=== PATIENT | male | born 1955 | race Caucasian/White ===

== ENCOUNTER 2022-12-30 12:57 | Emergency (ER) | payer OTHER ==
[2022-12-30] MEDS ORDERED: LIDOCAINE 1% MPF 30 ML VIAL ONE (13:30)
[2022-12-30] MEDS ORDERED: TETANUS & DIPHTHERIA TOX,ADULT 0.5 ML VIAL ONE (13:30)
--- OUTSIDE RECORDS SUMMARY | 2022-12-30 13:31 | XMS REPORT | Continuity of Care Document ---
:1955 Author Organization [facility] t Address [address] [place] [address] Care Team Providers Name Role Phone Ayla Rosales MD Primary Care Physician ASHLEY SIERRA Attending Clinician Unavailable LAB68 Attending Clinician Unavailable YAYA EISENBERG Attending Clinician Unavailable DEACON MAY Attending Clinician Unavailable JOANS ULLOA Attending Clinician Unavailable MD GEORGIA Attending Clinician Unavailable Deacon May MD Attending Clinician Yaya Eisenberg MD Attending Clinician Ashley Sierra RD Attending Clinician CED MARTIN I Attending Clinician Unavailable Yumiko Huggins OD Attending Clinician [phone] [id number] Attending Clinician Unavailable NIKKI AVITIA Attending Clinician Unavailable Payers Payer Name Policy Type Policy Number Effective Date Expiration Date S aleksey [employer]KE HMO 7 [id number] 2021 00:00:00 Problems Condition Condition Condition Status Onset Resolution Last Treating Co mments Source Name Details Category Date Date Treatment Clinician Date Hyperlipid Hyperlipid Disease Active K elseprasad emia emia 1-20 Seybold 00:00: - 00 Externa l Type 2 Type 2 Disease Active [place] diabetes diabetes 1-20 Seybol d mellitus mellitus 00:00: without without 00 complicati complicati on, on, without without long-term long-term current current use of use of insulin insulin Type 2 Type 2 Disease Active [place] diabetes diabetes -20 Seybol juju mellitus mellitus 00:00: - with with 00 Externa hyperlipid hyperlipid l emia emia Obesity Obesity Disease Active [place] (BMI (BMI 09-17 Seybold 35.0-39.9 35.0-39.9 00:00: without without 00 comorbidit comorbidit y) y) Former Former Disease Active [place] smoker smoker 09-17 Seybold 00:00: - 00 Externa l Severe Severe Disease Active [place] obesity obesity 09-17 Seybold (BMI (BMI 00:00: 35.0-39.9) 35.0-39.9) 00 with with comorbidit comorbidit y y Allergies, Adverse Reactions, Alerts This patient has no known allergies or adverse reactions. Social History Social Habit Start Date Stop Date Quantity Comments Source History SDOH [place] singh Alcohol Frequency - Exter nal History SDOH [facility] sing[facility] Alcohol Std Drinks - Exte rnal History MALCOLMPR [place] sing[facility] Alcohol Binge - External Exposure to Not sure [facility] matute SARS-CoV-2 (event) Tobacco use and 2022-03-04 2022-03-04 Smokeless tobacco Nikolay Guzman exposure 00:00:00 00:00:00 non-user - External Tobacco Comment 2022-03-04 2022-03-04 quit in 2012 [facility] Guzman 00:00:00 00:00:00 - External Alcohol intake 2018-03-11 2018-03-11 [facility]er [facility] Cigarettes smoked 2014-03-22 2014-03-[address] [facility] current (pack per 00:00:00 00:00:00 [facility] Center day) - Reported Cigarette 2014-03-22 2014-03-[address] [facility] pack-years 00:00:00 00:00:00 [facility] Alcohol Comment 2013-11-30 2013-11-[address] [facility] 00:[facility] History of tobacco 2013-07-23 Current smoker [facility] use 00:00:00 [facility] Sex [birth year] At [birth year] ROBERT Brand 00:00:00 00:00:00 [facility] Smoking Status Start Date Stop Date Source Ex-smoker 2022-03-04 00:00:00 2022-03-04 00:00:00 [place] S eybold - External Medications Ordered Filled Start Stop Current Ordering Indication Dosage Frequency Signature Comments Components Source Medication Medication Date Date Medication? Clinician (SIG) Name Name Multiple 2021-08 Yes 1{tbl} Take 1 Kelse y Vitamins-Mi 0-31 tablet by Shannon trevino nerals 11:23: mouth - (CENTRUM 35 daily Externa SILVER l ULTRA MENS OR) FIBER ADULT 2021-08 Yes 2{tbl} Take 2 Ke lsey GUMMIES OR 0-31 tablets by Shannon trevino 11:23: mouth - 35 daily Externa l Sildenafil 2021-08 Yes 100mg QD Take 1 Thao ey Citrate 0-31 tablet Yasirold (Viagra) 00:00: (100 mg - 100 MG oral total) by Ext karin Tablet mouth l daily as needed for erectile dysfunctio n Atorvastati Yes [id number] TAKE ONE [place] n Calcium 9-30 TABLET BY Satinder ld 40 MG oral 00:00: MOUTH - Tablet 00 EVERY DAY Externa l Multiple Yes 1{tbl} Take 1 Kelse y Vitamins-Mi 6-06 tablet by Shannon trevino nerals 08:46: mouth (CENTRUM 35 daily SILVER ULTRA MENS OR) FIBER ADULT Yes 2{tbl} Take 2 Ke lsey GUMMIES OR 6-06 tablets by Shannon trevino 08:46: mouth 35 daily Na Yes [id number] Instructio Ke lsey Sulfate-K 6-06 n given to Seyb old Sulfate-Mg 00:00: patient in Sulf 00 clinic. (Suprep Use as Bowel Prep directed Kit) by 17.5-3.13-1 provider .6 GM/177ML during oral office Solution visit. Multiple Yes 1{tbl} Take 1 Kelse y Vitamins-Mi 4-26 tablet by Shannon trevino nerals 09:50: mouth (CENTRUM 03 daily SILVER ULTRA MENS OR) FIBER ADULT Yes 2{tbl} Take 2 Ke lsey GUMMIES OR 4-26 tablets by Shannon trevino 09:50: mouth 03 daily Triamcinolo Yes Apply bid [place] ne 4- to Seybold Acetonide 00:00: affected 0.1 % apply 00 area ; no externally longer x Cream 14 days. Triamcinolo Yes Apply bid [place] ne - to Seybold Acetonide 00:00: affected 0.1 % apply 00 area ; no externally longer x Cream 14 days. Triamcinolo 202- No Apply bid [place] ne 4-06-29 to Seybold Acetonide 00:00: 00:00 affected - 0.1 % apply 00 :00 area ; no Ext karin externally longer x l Cream 14 days. Multiple Yes 1{tbl} Take 1 Kelse y Vitamins-Mi 1-31 tablet by Shannon trevino nerals 10:48: mouth (CENTRUM 28 daily SILVER ULTRA MENS OR) FIBER ADULT Yes 2{tbl} Take 2 Ke lsey GUMMIES OR 1-31 tablets by Shannon trevino 10:48: mouth 28 daily Multiple Yes 1{tbl} Take 1 Kelse y Vitamins-Mi 1-31 tablet by Shannon [employer] nerals 10:48: mouth (CENTRUM 28 daily SILVER ULTRA MENS OR) FIBER ADULT Yes 2{tbl} Take 2 Ke lsey GUMMIES OR 1-31 tablets by Shannon trevino 10:48: mouth 28 daily Multiple Yes 1{tbl} Take 1 Kelse y Vitamins-Mi 1-31 tablet by Shannon [employer] nerals 09:48: mouth (CENTRUM 12 daily SILVER ULTRA MENS OR) FIBER ADULT Yes 2{tbl} Take 2 Ke lsey GUMMIES OR 1-31 tablets by Shannon trevino 09:48: mouth 12 daily Atorvastati Yes [id number] 40mg Take 1 [place] n Calcium 1-31 tablet (40 Seyb old 40 MG oral 00:00: mg total) Tablet 00 by mouth daily Zoster Vac Yes [id number] One dose [place] Recomb 1-31 now. Seybold Adjuvanted 00:00: Second 50 00 dose given MCG/0.5ML two to six intramuscul months ar Recon AFTER Susp first dose. Blood 2021-0 Yes Sig as [place] Glucose 1-31 directed. Seybold Monitoring 00:00: Suppl 00 (Blood Glucose Monitor System) w/Device does not apply Kit Glucose 0 Yes Sig once [facility] Blood in - daily. Seybold vitro Strip 00:00: 00 Lancets 28G Yes Use as Thao ey does not 1- directed Seybold apply Misc 00:00: 00 Sildenafil 2021- Yes [id number] 50mg Q24H Take 1 [place] Citrate 1-31 tablet (50 Seybol d (Viagra) 50 00:00: mg total) MG oral 00 by mouth Tablet daily as needed for erectile dysfunctio n Atorvastati Yes [id number] 40mg Take 1 [place] n Calcium 1-31 tablet (40 Seyb old 40 MG oral 00:00: mg total) Tablet 00 by mouth daily Zoster Vac Yes [id number] One dose [place] Recomb 1-31 now. Seybold Adjuvanted 00:00: Second 50 00 dose given MCG/0.5ML two to six intramuscul months ar Recon AFTER Susp first dose. Blood 2021- Yes Sig as [place] Glucose 1- directed. Seybold Monitoring 00:00: Suppl 00 (Blood Glucose Monitor System) w/Device does not apply Kit Glucose Yes Sig once [place] Blood in - daily. Seybold vitro Strip 00:00: 00 Lancets 28G 0 Yes Use as Thao ey does not 09-29 directed Seybold apply Misc 00:00: 00 Sildenafil 2021-0 Yes [id number] 50mg Q24H Take 1 [place] Citrate 1-31 tablet (50 Seybol d (Viagra) 50 00:00: mg total) MG oral 00 by mouth Tablet daily as needed for erectile dysfunctio n Atorvastati Yes [id number] 40mg Take 1 [place] n Calcium 1-31 tablet (40 Seyb old 40 MG oral 00:00: mg total) Tablet 00 by mouth daily Zoster Vac Yes [id number] One dose [place] Recomb 1-31 now. Seybold Adjuvanted 00:00: Second 50 00 dose given MCG/0.5ML two to six intramuscul months ar Recon AFTER Susp first dose. Blood 2021-0 Yes Sig as [place] Glucose 1-31 directed. Seybold Monitoring 00:00: Suppl 00 (Blood Glucose Monitor System) w/Device does not apply Kit Glucose Yes Sig once [place] Blood in - daily. Seybold vitro Strip 00:00: 00 Lancets 28G Yes Use as Thao ey does not - directed Seybold apply Misc 00:00: 00 Sildenafil Yes [id number] 50mg QD Take 1 [place] Citrate 1-31 tablet (50 Seybol d (Viagra) 50 00:00: mg total) MG oral 00 by mouth Tablet daily as needed for erectile dysfunctio n Atorvastati Yes [id number] 40mg Take 1 [place] n Calcium 1-31 tablet (40 Seyb old 40 MG oral 00:00: mg total) Tablet 00 by mouth daily Zoster Vac 0 Yes [id number] One dose [place] Recomb 1-31 now. Seybold Adjuvanted 00:00: Second 50 00 dose given MCG/0.5ML two to six intramuscul months ar Recon AFTER Susp first dose. Blood Yes Sig as [place] Glucose 1- directed. Seybold Monitoring 00:00: Suppl 00 (Blood Glucose Monitor System) w/Device does not apply Kit Glucose Yes Sig once [facility] Blood in - daily. Seybold vitro Strip 00:00: 00 Lancets 28G Yes Use as Thao ey does not 09-29 directed Seybold apply Misc 00:00: 00 Sildenafil 0 Yes [id number] 50mg QD Take 1 [place] Citrate 1-31 tablet (50 Seybol d (Viagra) 50 00:00: mg total) MG oral 00 by mouth Tablet daily as needed for erectile dysfunctio n Atorvastati Yes [id number] 40mg Take 1 [place] n Calcium 1-31 tablet (40 Seyb old 40 MG oral 00:00: mg total) Tablet 00 by mouth daily Zoster Vac 2021-0 Yes [id number] One dose [place] Recomb 1- now. Seybold Adjuvanted 00:00: Second 50 00 dose given MCG/0.5ML two to six intramuscul months ar Recon AFTER Susp first dose. Blood 2021-0 Yes Sig as [place] Glucose - directed. Seybold Monitoring 00:00: Suppl 00 (Blood Glucose Monitor System) w/Device does not apply Kit Glucose 2021-0 Yes Sig once [facility] Blood in 09-29 daily. Seybold vitro Strip 00:00: 00 Lancets 28G 0 Yes Use as Thao ey does not - directed Seybold apply Misc 00:00: 00 Sildenafil 2021-0 Yes [id number] 50mg QD Take 1 [place] Citrate 1-31 tablet (50 Seybol d (Viagra) 50 00:00: mg total) MG oral 00 by mouth Tablet daily as needed for erectile dysfunctio n Zoster Vac 2021-0 Yes [id number] One dose [place] Recomb 09-29 now. Seybold Adjuvanted 00:00: Second - 50 00 dose given Externa MCG/0.5ML two to six l intramuscul months ar Recon AFTER Susp first dose. Blood 2021-0 Yes Sig as [place] Glucose - directed. Seybold Monitoring 00:00: - Suppl 00 Externa (Blood l Glucose Monitor System) w/Device does not apply Kit Glucose 2021-0 Yes Sig once [facility] Blood in - daily. Seybold vitro Strip 00:00: - 00 Externa l Lancets 28G 2021-0 Yes Use as Thao ey does not - directed Seybold apply Misc 00:00: - 00 Externa l Sildenafil 2021-0 2022- No [id number] 50mg QD Take 1 [place] Citrate 1-31 10-31 tablet (50 Seybo ld (Viagra) 50 00:00: 00:00 mg total) - MG oral 00 :00 by mouth Externa Tablet daily as l needed for erectile dysfunctio n FIBER ADULT 2021-0 Yes 2{tbl} Take 2 Ke lsey GUMMIES OR 1-12 tablets by Shannon trevino 09:21: mouth 11 daily FIBER ADULT 2022-0 Yes 2{tbl} Take 2 Ke lsey GUMMIES OR 1-12 tablets by Sey bold 09:21: mouth 11 daily Multiple Yes 1{tbl} Take 1 Kelse y Vitamins-Mi 1-12 tablet by Seprasad bold nerals 09:21: mouth (CENTRUM 10 daily SILVER ULTRA MENS OR) Multiple Yes 1{tbl} Take 1 Kelse y Vitamins-Mi 1-12 tablet by Seprasad bold nerals 09:21: mouth (CENTRUM 10 daily SILVER ULTRA MENS OR) Immunizations Ordered Immunization Filled Immunization Date Status Commen ts Source Name Name Shingles IM 2021-11-27 Completed [place] Seybol d (Shingrix) 00:00:00 Shingles IM 2021-11-27 Completed [place] Seybol d (Shingrix) 00:00:00 Shingles IM 2021-11-27 Completed [place] Seybol d (Shingrix) 00:00:00 - External Shingles IM 2021-09-29 Completed [place] Seybol d (Shingrix) 00:00:00 Shingles IM 2021-09-29 Completed [place] Seybol d (Shingrix) 00:00:00 Shingles IM 2021-09-29 Completed [place] Seybol d (Shingrix) 00:00:00 - External Shingles IM 2021-09-29 Completed [place] Seybol d (Shingrix) 00:00:00 Vital Signs Vital Name Observation Time Observation Value Comments Source Systolic blood 2022-06-29 16:20:00 142 mm[Hg] [facility] Clearyybold - pressure External Diastolic blood 2022-06-29 16:20:00 78 mm[Hg] Chase parham Seybold - pressure External Heart rate 2022-06-29 16:20:00 74 /min [facility] howell - External Body temperature 2022-06-29 16:20:00 36.83 Magdalene Thao joel Seybold - External Respiratory rate 2022-06-29 16:20:00 16 /min Thao joel Seybold - External Body height 2022-06-29 16:20:00 182.9 cm [facility] howell - External Body weight 2022-06-29 16:20:00 117.935 kg [place] S eybold - External BMI 2022-06-29 16:20:00 35.26 kg/m2 [place] S eybold - External Systolic blood 2022-02-02 13:46:00 122 mm[Hg] [place] Seybold pressure Diastolic blood 2022-02-02 13:46:00 70 mm[Hg] Kelse y Seybold pressure Heart rate 2022-02-02 13:46:00 74 /min [place] S eybold Body temperature 2022-02-02 13:46:00 36.89 Magdalene Thao ey Seybold Respiratory rate 2022-02-02 13:46:00 13 /min Thao ey Seybold Body height 2022-02-02 13:46:00 182.9 cm [facility] S eybold Body weight 2022-02-02 13:46:00 117.845 kg [facility] S eybold BMI 2022-02-02 13:46:00 35.24 kg/m2 [place] S eybold Systolic blood 2021-12-23 14:47:00 126 mm[Hg] [place] Seybold pressure Diastolic blood 2021-12-23 14:47:00 80 mm[Hg] Kelse y Seybold pressure Heart rate 2021-12-23 14:47:00 69 /min [place] S eybold Body temperature 2021-12-23 14:47:00 36.78 Magdalene Thao ey Seybold Respiratory rate 2021-12-23 14:47:00 16 /min Thao ey Seybold Body height 2021-12-23 14:47:00 182.9 cm [facility] S eybold Body weight 2021-12-23 14:47:00 116.665 kg [facility] S eybold BMI 2021-12-23 14:47:00 34.88 kg/m2 [place] S eybold Body weight 2021-11-27 15:15:00 118.071 kg [place] S eybold BMI 2021-11-27 15:15:00 35.30 kg/m2 [place] S eybold Systolic blood 2021-09-29 15:46:00 136 mm[Hg] [place] Seybold pressure Diastolic blood 2021-09-29 15:46:00 82 mm[Hg] Kelse y Seybold pressure Heart rate 2021-09-29 15:46:00 73 /min [facility] Cordoba eybold Body temperature 2021-09-29 15:46:00 36.89 Magdalene Thao ey Seybold Respiratory rate 2021-09-29 15:46:00 16 /min Thao ey Seybold Body height 2021-09-29 15:46:00 182.9 cm [place] S eybold Body weight 2021-09-29 15:46:00 121.11 kg [place] S eybold BMI 2021-09-29 15:46:00 36.21 kg/m2 [place] S eybold Systolic blood 2021-09-17 15:17:00 126 mm[Hg] [place] Seybold pressure Diastolic blood 2021-09-17 15:17:00 82 mm[Hg] Kelse y Seybold pressure Heart rate 2021-09-17 15:17:00 80 /min [place] Cordoba eybold Body temperature 2021-09-17 15:17:00 37.06 Magdalene Thao ey Seybold Respiratory rate 2021-09-17 15:17:00 16 /min Thao ey Seybold Body height 2021-09-17 15:17:00 182.9 cm [place] Cordoba eybold Body weight 2021-09-17 15:17:00 119.75 kg [facility] Cordoba eybold BMI 2021-09-17 15:17:00 35.80 kg/m2 [facility] Cordoba eybold Procedures This patient has no known procedures. Encounters Start End Encounter Admission Attending Care Care Encounter Source Date/Time Date/Time Type Type Clinicians Facility Department ID 2022-07-30 2022-07-30 Outpatient LAKESHIA SIERRA [id number] [place] 00:00:00 00:00:00 ASHLEY Seybol d 2022-07-09 2022-07-09 Outpatient LAKESHIA BLUM [id number] [place] 08:45:00 08:45:00 Seybol d 2022-06-29 2022-06-29 Outpatient LAB68 LAKESHIA BLUM [id number] [place] 12:15:00 12:15:00 Seybol d 2022-06-29 2022-06-29 Outpatient YAYA EISENBERG [id number] [place] 11:30:00 11:30:00 Seybol d 2022-06-24 2022-06-24 Outpatient LAB68 LAKESHIA BLUM [id number] [place] 10:00:00 10:00:00 Seybol d 2022-06-24 2022-06-24 Outpatient YAYA EISENBERG [facility] BLUM [id number] [place] 00:00:00 00:00:00 Seybol d 2022-06-23 2022-06-23 Outpatient YAYA EISENBERG [facility] BLUM [id number] [place] 10:00:00 10:00:00 Seybol d 2022-03-04 2022-03-04 Outpatient LAKESHIA MAY [id number] [place] 09:00:00 09:00:00 DEACON Seybol d 2022-03-04 2022-03-04 Outpatient ARTEMIO JONASMeng BLUM [id number] [place] 00:00:00 00:00:00 Seybol d 2022-02-20 2022-02-20 Outpatient LAB68 LAKESHIA BLUM [id number] [place] 08:25:00 08:25:00 Seybol d 2022-02-19 2022-02-19 Outpatient YAYA EISENBERG [facility] BLUM [id number] [place] 00:00:00 00:00:00 Seybol d 2022-02-04 2022-02-04 Outpatient KAMRYNLAKESHIAARISTIDESMireille BLUM [id number] [place] 00:00:00 00:00:00 MD KRYSTAL Seybol d 2022-02-02 2022-02-02 Outpatient LAB68 LAKESHIA BLUM [id number] [place] 10:00:00 10:00:00 Seybol d 2022-02-02 2022-02-02 Outpatient LAB68 LAKESHIA BLUM [id number] [place] 09:55:00 09:55:00 Seybol d 2022-02-02 2022-02-02 Office [facility] May [id number] [place] 09:00:00 09:20:00 Visit [place] SVETLANA [id number] shelley Hernandes [id number] 2022-01-27 2022-01-27 Outpatient YAYA EIESNBERG [facility] [id number] [place] 00:00:00 00:00:00 Seybol d 2022-01-12 2022-01-12 Outpatient YAYA EISENBERG [facility] [id number] [place] 00:00:00 00:00:00 Seybol d 2021-12-23 2021-12-23 Outpatient LAB68 LAKESHIA LAKESHIA [id number] [place] 10:30:00 10:30:00 Seybol d 2021-12-23 2021-12-23 Office Yaya Eisenberg [id number] [place] 10:00:00 10:15:00 Visit CLINIC [id number] Se ybold [id number] 2021-11-27 2021-11-27 Education [facility] Sierra [id number] [place] 09:45:00 10:15:00 Ashley CLINIC [id number] Se ybold [id number] 2021-11-27 2021-11-27 Outpatient ANNEMengLAKESHIA [id number] [place] 00:00:00 00:00:00 CED Seyb old 2021-10-06 2021-10-06 Outpatient YAYA EISENBERG [facility] BLUM [id number] [place] 00:00:00 00:00:00 Seybol d 2021-10-01 2021-10-01 Outpatient YAYA EISENBERG L[facility] BLUM [id number] [place] 00:00:00 00:00:00 Seybol d 2021-09-29 2021-09-29 Office [facility] Huggins [id number] [place] 10:40:00 11:00:00 Visit [facility] [id number] S marycruzbosamantha Faanevin [id number] 2021-09-29 2021-09-29 Office Yaya Eisenberg [id number] [place] 10:00:00 10:15:00 Visit L CLINIC [id number] Se ybold [id number] 2021-09-29 2021-09-29 Outpatient YAYA EISENBERG [facility] [id number] [place] 00:00:00 00:00:00 Seybol d 2021-09-25 2021-09-25 Education [facility] SIERRA [id number] [place] 09:45:00 09:45:00 ASHLEY CLINIC [id number] Se ybold [id number] 2021-09-17 2021-09-17 Outpatient TRED68 LAKESHIA BLUM [id number] [place] 11:30:00 11:30:00 Seybol d 2021-09-17 2021-09-17 Outpatient LAB68 LAKESHIA BLUM [id number] [place] 10:30:00 10:30:00 Seybol d 2021-09-17 2021-09-17 Office Yaya Eisenberg [id number] [place] 09:30:00 10:15:00 Visit L CLINIC [id number] Se ybold [id number] 2021-09-09 2021-09-09 Outpatient SADI LAKESHIA BLUM [id number] [place] 00:00:00 00:00:00 BENSY Seybol d Results Test Description Test Time Test Comments Results Result Sourc e Comments FL, ERCP 2018-03-10 Reason for FINAL REPORT PATIENT 13:58:00 exam:->calculus ID: [id number] ERCP 6 of bile views 03/10/2018 1:57 duct,abnormal PM CLINICAL HISTORY: imaging Instrument localization COMPARISON: None available IMPRESSION: Please correlate imaging report findings with the procedure note prepared by Dr. Page, as an intra-procedure imaging consultation was not requested. Reported fluoroscopy time: 8.9 minutes. Signed: Kavon Lockett Verified Date/Time: 03/10/2018 13:58:01 Reading Location: [facility] Radiology Reading Room
[2022-12-30] MEDS ORDERED: LIDOCAINE 1% 20 ML MDV ONE (13:34)
--- NOTE | 2022-12-30 14:12 | RAD REPORT ---
EXAM DESCRIPTION: RAD -Hand Left 3 View - 12/30/2022 1:54 pm CLINICAL HISTORY: Left hand pain status post injury FINDINGS: No fracture or dislocation is seen. A bandage overlies the posteromedial wrist. This obscures soft tissue detail somewhat. No gross forei gn body is seen. However, there is a 1.4 millimeter calcification or foreign body within the soft tissues of the thena r eminence
--- NOTE | 2022-12-30 14:55 | ER ---
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 Coronavirus screen: At this time, the client does not indicate any symptoms associated with coronavirus-19. Ebola Screen: No symptoms or risks identified at this time. Complicating Factors: laceration. Initial Sepsis Screen: Does the patient meet any 2 criteria? No. Patient's initial sepsis screen is negative. Does the patient have a suspected source of infection? No. Patient's initial sepsis screen is negative. Risk Assessment: Do you want to hurt yourself or someone else? Patient reports no desire to harm self or others. Onset of symptoms. Care prior to arrival:. Mechanism of Injury: Laceration sustained at home, while doing carpentry, from internal grinder set up operator Injury was accidental. 13:45 Method Of Arrival: Ambulatory ko1 13:45 Acuity: MARVA 3 ko1 Triage Assessment: 14:41 General: Appears in no apparent distress. uncomfortable, Behavior is calm, cooperative, ko1 appropriate for age. Pain: Complains of pain in left hand and dorsum of left hand. Injury Description: Laceration sustained to left hand and dorsum of left hand. Historical: - Allergies: 14:41 No Known Allergies; ko1 - Immunization history:: Adult Immunizations unknown, . - Social history:: Smoking status: . Screenin:45 [facility] ED Fall Risk Assessment (Adult) History of falling in the last 3 months, ko1 including since admission No falls in past 3 months (0 pts) Confusion or Disorientation No (0 pts) Intoxicated or Sedated No (0 pts) Impaired Gait No (0 pts) Mobility Assist Device Used No (0 pt) Altered Elimination No (0 pt) Score/Fall Risk Level 0 - 2 = Low Risk Oriented to surroundings, Maintained a safe environment, Educated pt \T\ family on fall prevention, incl call for assistance when getting out of bed, Assessed \T\ reinforced patient's understanding of fall precautions, Provided non-skid footwear, Hourly rounding (assess needs \T\ fall precautionary measures) done, Used ambulatory aids as needed (educated on \T\ assisted with), Used gait belt as appropriate. Abuse screen: Denies threats or abuse. Denies injuries from another. Nutritional screening: No deficits noted. Tuberculosis screening: No symptoms or risk factors identified. Assessment: 13:45 Neuro: No deficits noted. Cardiovascular: No deficits noted. Respiratory: No deficits ko1 noted. GI: No deficits noted. : No deficits noted. EENT: No deficits noted. Derm: No deficits noted. Musculoskeletal: Circulation, motion, and sensation intact. Injury Description: Laceration is clean. Vital Signs: 14:00 BP 148 / 82; Pulse 84; Resp 18; Temp 98; Pulse Ox 98% on R/A; ko1 ED Course: 13:01 Patient arrived in ED. aa5 13:05 Madyson Irwin FNP-C [facility]. kb 13:05 Braden Ulrich MD is Attending Physician. kb 13:25 Roxi Mckeon, MARGARITA is Primary Nurse. ko1 13:45 Patient has correct armband on for positive identification. Bed in low position. Call ko1 light in reach. NIBP on. 13:45 Assist provider with laceration repair on left hand and dorsum of left hand using ko1 sutures. Set up tray. Performed by Madyson CORTES Dressed with 4X4s, Kerlix, Patient tolerated well. Patient did not have IV access during this emergency room visit. 13:56 Hand Left 3 View XRAY In Process Unspecified. EDMS 14:41 Triage completed. ko1 14:41 Arm band placed on right wrist. Patient placed in an exam room, Patient notified of ko1 wait time. Administered Medications: 13:30 Drug: Tetanus-Diphtheria Toxoid IM Adult 0.5 ml {Manual Plate Filler: [employer]. Exp: ko1 02/07/2024. Lot #: [id number]. } Route: IM; Site: right deltoid; 14:37 Drug: Lidocaine Infiltration (1 %) 1 vials Volume: 20 ml; Route: Infiltration; ko1 Medication: 13:45 Vaccine Information Statement (VIS) provided today. Questions and/or concerns ko1 addressed. VIS edition date: December 30, 2022. Outcome: 14:54 Discharge ordered by MD. sofia 15:03 Discharged to home ambulatory. ko1 15:03 Condition: good 15:03 Discharge instructions given to patient, Instructed on discharge instructions, follow up and referral plans. medication usage, wound care, Demonstrated understanding of instructions, medications, wound care, Prescriptions given X 1. 15:05 Patient left the ED. ko1 Signatures: Dispatcher [employer] EDMS Madyson Irwin, KEON-Diamond HERBERT-Philly Keller, RN RN aa5 Roxi Mckeon, RN RN ko1
--- NOTE | 2022-12-30 14:55 | EDPHYS ---
Physician Documentation [facility] Name: Mulugeta Aldridge Age: 67 yrs Sex: Male : 1955 Arrival Date: 12/30/2022 Time: 12:57 Bed 12 Private MD: ED Physician Braden Ulrich HPI: 12/30 13:54 This 67 yrs old Male presents to ER via Unassigned with complaints of Laceration To kb Hand. 13:54 The patient has a laceration related to: using razor grinder and it slipped causing kb laceration to left hand. The laceration(s) is(are) located on the dorsum of left hand. Onset: The symptoms/episode began/occurred just prior to arrival. Associated signs and symptoms: Pertinent positives: heavy bleeding, Pertinent negatives: deformity, dizziness, loss of consciousness, numbness distal to injury, suspected foreign body. The patient has not experienced similar symptoms in the past. The patient has not recently seen a physician. Historical: - Allergies: 14:41 No Known Allergies; ko1 - Immunization history:: Adult Immunizations unknown, . - Social history:: Smoking status: . ROS: 13:55 Constitutional: Negative for fever, chills, and weight loss. kb 13:55 Skin: Positive for laceration(s), of the dorsum of left hand. 13:55 All other systems are negative. Exam: 13:55 Constitutional: This is a well developed, well nourished patient who is awake, alert, kb and in no acute distress. Head/Face: Normocephalic, atraumatic. ENT: Moist Mucous membranes Cardiovascular: Regular rate and rhythm with a normal S1 and S2. No gallops, murmurs, or rubs. No pulse deficits. Respiratory: Respirations even and unlabored. No increased work of breathing. Talking in full sentences Abdomen/GI: Soft, non-tender. No distention MS/ Extremity: Pulses equal, no cyanosis. Neurovascular intact. Full, normal range of motion. Neuro: Awake and alert, GCS 15, oriented to person, place, time, and situation. Moves all extremities. Normal gait. 13:55 Skin: injury, laceration(s), the wound is approximately 7 cm(s), of the dorsum of left hand, that can be described as clean, no foreign body, linear, without bleeding. Vital Signs: 14:00 BP 148 / 82; Pulse 84; Resp 18; Temp 98; Pulse Ox 98% on R/A; ko1 Laceration: 14:53 Wound Repair of 7cm ( 2.8in ) subcutaneous laceration to dorsum of left hand. kb Irregularly shaped.. Distal neuro/vascular/tendon intact. Anesthesia: Wound infiltrated with 6 mls of 1% lidocaine. Wound prep: Extensive cleansing with hibiclenz by me, Wound irrigation with saline by me. Skin closed with 8 4-0 Prolene using 5 cruciate knots, 3 simples sutures. Patient tolerated well. MDM: 13:05 Patient medically screened. kb 13:56 Differential diagnosis: superficial laceration, tendon injury, vascular injury. Data kb reviewed: vital signs, nurses notes. 14:53 Counseling: I had a detailed discussion with the patient and/or guardian regarding: the kb historical points, exam findings, and any diagnostic results supporting the discharge/admit diagnosis, radiology results, the need for outpatient follow up, a family practitioner, to return to the emergency department if symptoms worsen or persist or if there are any questions or concerns that arise at home. 12/30 13:06 Order name: Hand Left 3 View XRAY; Complete Time: 14:12 kb 12/30 13:06 Order name: Dressing - Wound; Complete Time: 14:37 kb 12/30 13:06 Order name: Gloves, Sterile; Complete Time: 13:21 kb 12/30 13:06 Order name: Prolene, Sutures; Complete Time: 13:26 kb 12/30 13:06 Order name: Setup Suture Tray; Complete Time: 13:21 kb Administered Medications: 13:30 Drug: Tetanus-Diphtheria Toxoid IM Adult 0.5 ml {Telemarketer: [employer] Exp: ko1 02/07/2024. Lot #: [id number]. } Route: IM; Site: right deltoid; 14:37 Drug: Lidocaine Infiltration (1 %) 1 vials Volume: 20 ml; Route: Infiltration; ko1 Disposition Summary: 12/30/22 14:54 Discharge Ordered Location: Home kb Condition: Stable kb Diagnosis - Laceration without foreign body of left hand kb Followup: kb - With: Emergency Department - When: As needed - Reason: Worsening of condition Followup: kb - With: Private Physician - When: 2 - 3 days - Reason: Recheck today's complaints, Continuance of care, Re-evaluation by your physician Discharge Instructions: - Discharge Summary Sheet kb - Laceration Care, Adult, [id number] kb Forms: - Medication Reconciliation Form kb - Thank You Letter kb - Antibiotic Education kb - Prescription Opioid Use kb Prescriptions: - Cephalexin 500 mg Oral Capsule - take 1 capsule by ORAL route every 8 hours for 10 days; 30 capsule; Refills: 0, kb Product Selection Permitted Signatures: Dispatcher [employer] EDMadyson Awan, KEON-C [employer]-Roxi Pascual, RN RN ko1 Corrections: (The following items were deleted from the chart) 14:53 13:55 Skin: injury, laceration(s), the wound is approximately 6 cm(s), of the dorsum of kb left hand, that can be described as clean, no foreign body, linear, without bleeding, kb
[2022-12-30 15:09] VITALS: BP 148/82; TEMP 98; O2SAT 98
== END 2022-12-30 15:05 | disposition home or self-care (01) ==
LOC: ER 12:57
PROC: 0HQGXZZ Repair Left Hand Skin, External Approach (ICD-10-PCS; principal; 2022-12-30)
DX: S61.412A Laceration without foreign body of left hand, initial encounter (principal); Z23 Encounter for immunization
CPT/HCPCS: 73130; 90714; 12002; J2001; 90471; 99284